=== PATIENT | male | born 1990 | race Caucasian/White ===

== ENCOUNTER 2017-07-11 12:37 | Emergency (ER) | payer OTHER ==
[2017-07-11] MEDS ORDERED: 0.9 % SODIUM CHLORIDE 1,000 ML BAG IV ONE ×2 (13:20→14:42)
[2017-07-11] MEDS ORDERED: ONDANSETRON HCL IV 4 MG/2 ML VIAL IV ONE (13:20)
--- NOTE | 2017-07-11 13:27 | Emergency Department Record ---
History of Present Illness - General Chief complaint: Vomiting Stated complaint: VOMITING FOR 12 HOURS Time Seen by Provider: 07/11/17 13:16 Source: Patient Mode of Arrival: Ambulatory Limitations: No limitations - History of Present Illness Initial comments: The patient is here due to a 12 hour hx of nausea, vomiting, and then diarrhea. He also has had L flank pain which is a sharp stabbing pain. Presently he is feeling better. He denies any fever, dysuria, arm or leg numbness, weakness or any bowel or bladder issues. The patient's only abdominal surgical hx is of a hernia repair as a child. MD complaint: Diarrhea, Nausea, Vomiting Onset/Timin -: Days(s) Description of Vomiting: Watery Associated Abdominal Pain: Yes Location: LUQ, LLQ Radiation: Back Severity scale (1-10): 8 Quality: Aching, Sharp Consistency: Constant Improves with: None Worsens with: Eating Associated Symptoms: Nausea/vomiting - Related Data Home Medications Medication Instructions Recorded Confirmed Last Taken Aripiprazole 10 mg PO DAILY 07/11/17 07/11/17 Unknown Celecoxib 300 mg PO BID 07/11/17 07/11/17 Unknown Cholecalciferol (Vitamin D3) 1,000 unit PO DAILY 07/11/17 07/11/17 Unknown [Vitamin D3] Cyanocobalamin (Vitamin B-12) 1,000 mcg PO DAILY 07/11/17 07/11/17 Unknown [Vitamin B-12] Cyclobenzaprine HCl 30 mg PO TID 07/11/17 07/11/17 Unknown Diazepam [Valium] 10 mg PO BID 07/11/17 07/11/17 Unknown Duloxetine HCl [Cymbalta] 90 mg PO DAILY 07/11/17 07/11/17 Unknown Gabapentin [Neurontin] 1,800 mg PO TID 07/11/17 07/11/17 Unknown Isosorbide Mononitrate [Imdur] 60 mg PO DAILY 07/11/17 07/11/17 Unknown Lactobacillus Acidophilus 200 mg PO DAILY 07/11/17 07/11/17 Unknown [Acidophilus] Magnesium 500 mg PO DAILY 07/11/17 07/11/17 Unknown Goodrich-3S/Dha/Epa/Fish Oil [Fish 1 each PO DAILY 07/11/17 07/11/17 Unknown Oil 1,200 mg Softgel] Pantoprazole Sodium 40 mg PO DAILY 07/11/17 07/11/17 Unknown Prazosin HCl 3 mg PO DAILY 07/11/17 07/11/17 Unknown Propranolol HCl 20 mg PO BID 07/11/17 07/11/17 Unknown Pyridoxine HCl (Vitamin B6) 100 mg PO DAILY 07/11/17 07/11/17 Unknown [Vitamin B-6] Quetiapine Fumarate [Seroquel] 200 mg PO DAILY 07/11/17 07/11/17 Unknown Riboflavin [Vitamin B-2] 100 mg PO DAILY 07/11/17 07/11/17 Unknown Sumatriptan Succinate 100 mg PO DAILY 07/11/17 07/11/17 Unknown Topiramate [Topamax] 100 mg PO BID 07/11/17 07/11/17 Unknown Vit C/Vit E AC/Lut/Copper/Zinc 1 tab PO BID 07/11/17 07/11/17 Unknown [PreserVision Lutein Softgel] Vitamin B Complex 1 each PO DAILY 07/11/17 07/11/17 Unknown Allergies Allergy/AdvReac Type Severity Reaction Status Date / Time codeine Allergy NAUSEA AND Verified 07/11/17 13:14 VOMITING Penicillins Allergy HIVES Verified 07/11/17 13:14 Travel Screening - Travel/Exposure Within Last 30 Days Have you traveled within the last 30 days?: No Review of Systems Constitutional: Denies: Chills, Fever Eyes: Denies: Eye discharge ENT: Denies: Congestion Respiratory: Denies: Cough, Dyspnea Cardiovascular: Denies: Chest pain Past Medical History - SOCIAL HISTORY Smoking Status: Current some day smoker Alcohol Use: None Drug Use: None - RESPIRATORY Hx Respiratory Disorders: No - CARDIOVASCULAR Hx Cardio Disorders: No - NEURO Hx Neuro Disorders: Yes Hx Headaches: Yes Comment:: TBI - GI Hx GI Disorders: No - Hx Genitourinary Disorders: No - ENDOCRINE Hx Endocrine Disorders: No - MUSCULOSKELETAL Hx Musculoskeletal Disorders: No - PSYCH Hx Psych Problems: Yes Hx Anxiety: Yes Hx Depression: Yes - HEMATOLOGY/ONCOLOGY Hx Hematology/Oncology Disorders: No Family Medical History Any Significant Family History?: No Physical Exam - General General Appearance: Alert, Oriented x3, Cooperative, No acute distress - Head Head exam: Atraumatic, Normocephalic, Normal inspection - Eye Eye exam: Normal appearance, PERRL - Neck Neck exam: Normal inspection, Full ROM. negative: Tenderness - Respiratory Respiratory exam: Normal lung sounds bilaterally. negative: Respiratory distress - Cardiovascular Cardiovascular Exam: Regular rate, Normal rhythm, Normal heart sounds - GI/Abdominal GI/Abdominal exam: Soft, Normal bowel sounds, Tenderness (There is mild L sided tenderness.) - Extremities Extremities exam: Normal inspection, Full ROM, Normal capillary refill. negative: Tenderness - Neurological Neurological exam: Alert. negative: Motor sensory deficit Course Vital Signs 07/11/17 13:02 Temperature 99.1 F Pulse Rate 107 H Respiratory 20 Rate Blood Pressure 119/85 Pulse Ox 99 - Reevaluation(s) Reevaluation #1: The patient is doing a lot better at this time. He denies any pain or discomfort or nausea. He is drinking water with no nausea or vomiting and has had no loose stools here. On exam his abdomen is very soft and nontender in all 4 quads. I did explain to him that the CT and UA are very normal and the patient feels ready for home. It appears he most likely had a viral GI bug and now is doing a lot better. He is to drink plenty of fluids and return to the ER for any worsening symptoms. 07/11/17 15:40 Medical Decision Making - Data Complexity MDM Data: Labs Ordered and/or Reviewed, X-Ray Ordered and/or Reviewed - Lab Data Result diagrams: 07/11/17 13:43 07/11/17 13:43 - Radiology Data Radiology results: Report reviewed (Abd/pelvis CT: Neg.) Disposition Disposition: Discharge Clinical Impression: Gastroenteritis Disposition: Home, Self-Care Condition: (2) Stable Instructions: Acute Nausea and Vomiting (ED) Additional Instructions: Please drink clear liquids for 6 hours then slowly advance your diet. Use your home Zofran for nausea. Please see your family doctor if not better in 3 days. Return to the ER for any return of the vomiting, diarrhea, or for any fever or abdominal pain. Forms: Patient Portal Access Time of Disposition: 15:43 Quality - Quality Measures Quality Measures: N/A - Blood Pressure Screening View Details: Yes Does Patient Have Any of the Following: No Blood Pressure Classification: Pre-Hypertensive BP Reading Systolic Measurement: 119 Diastolic Measurement: 85 Screening for High Blood Pressure: < Pre-Hypertensive BP, F/U Documented > [ G8950] Pre-Hypertensive Follow-up Interventions: Referral to alternative/primary care provider.
[2017-07-11 13:50] LABS: BASO % 0.1 % (0-6); EOS % 0.1 % (0-6); HEMATOCRIT 48.7 % (42.0-52.0); LYMPH % 1.2 % (16-45); MEAN CELL VOLUME 87.4 fl (81-97); MEAN CORPUSCULAR HEMOGLOBIN 30.5 pg (27-33); MEAN CORPUSCULAR HGB CONC 34.9 g/dl (32-36); MEAN PLATELET VOLUME 9.8 fl (7.4-10.4); MONO % 4.6 % (0-9); PLATELET COUNT 258 K/uL (130-400); RED BLOOD COUNT 5.57 M/uL (4.40-5.70); RED CELL DISTRIBUTION WIDTH 13.9 % (11.5-14.5); WHITE BLOOD COUNT W/O DIFF 17.2 K/uL (4.2-12.2)
[2017-07-11 13:59] LABS: BLOOD UREA NITROGEN 13 mg/dL (6-20); CREATININE 1.2 mg/dL (0.7-1.2); EST GLOMERULAR FILTRATION RATE > 60 mL/min
[2017-07-11 14:02] LABS: GLUCOSE,RANDOM 137 mg/dL (74-109)
[2017-07-11 14:05] LABS: ALKALINE PHOSPHATASE 71 U/L (40-129); ALT/SGPT 28 U/L (<41); AST/SGOT 19 U/L (10.0-50.0); LIPASE 12 U/L (13-60)
[2017-07-11 14:10] LABS: BILIRUBIN,DIRECT < 0.2 mg/dL (0-0.3)
[2017-07-11] MEDS ORDERED: KETOROLAC 30 MG/ML VIAL IVP ONE (14:23)
[2017-07-11 15:36] LABS: URINE APPEARANCE CLEAR; URINE BILIRUBIN NEGATIVE (NEGATIVE); URINE BLOOD NEGATIVE (NEGATIVE); URINE COLOR YELLOW; URINE GLUCOSE (UA) NEGATIVE (NEGATIVE); URINE KETONE NEGATIVE (NEGATIVE); URINE LEUKOCYTE ESTERASE NEGATIVE (NEGATIVE); URINE NITRITE NEGATIVE (NEGATIVE); URINE PROTEIN NEGATIVE (NEGATIVE); URINE UROBILINOGEN 0.2 E.U./dL (0.20 - 1.00)
--- NOTE | 2017-07-13 11:20 | CT SCAN REPORT ---
DATE: 07/13/2017. EXAM: CT SCAN OF THE ABDOMEN AND PELVIS WITHOUT CONTRAST. HISTORY: Left lower quadrant pain. TECHNIQUE: CT of the abdomen and pelvis was performed without or or intravenous contrast which limits evaluation of the bowel and solid visceral organs. COMPARISON: None. FINDINGS: Limited evaluation of the lung bases is unremarkable. Osseous structures are grossly intact. Probable fatty infiltrative change to the liver. The spleen, adrenal glands, pancreas, and kidneys are unremarkable. The gallbladder is present. Negative for urinary tract calculus or hydronephrosis. No gross evidence for bowel obstruction. Normal appendix. No free air or free fluid. IMPRESSION: FATTY INFILTRATIVE CHANGE TO THE LIVER. NEGATIVE FOR URINARY TRACT CALCULUS OR HYDRONEPHROSIS. JOB NUMBER: [id number] MTDD
== END 2017-07-11 15:58 | disposition home or self-care (01) ==
LOC: ER 12:37
DX: K52.9 Noninfective gastroenteritis and colitis, unspecified (principal); R11.2 Nausea with vomiting, unspecified; R10.12 Left upper quadrant pain; R10.11 Right upper quadrant pain; F17.210 Nicotine dependence, cigarettes, uncomplicated
CPT/HCPCS: 99284 ×2; 96374; 96375; 96361; 83690; 80076; 80048; 81003; 85027; 74176; J1885; J2405; J7030

== ENCOUNTER 2017-09-14 16:19 | Emergency (ER) | payer OTHER ==
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
[2017-09-14] MEDS ORDERED: ENOXAPARIN 100 MG/ML SYR SQ ONE (17:31)
--- NOTE | 2017-09-14 23:10 | RADIOLOGY REPORT ---
EXAM: LOWER LEG, LEFT HISTORY: LATERAL LEFT KNEE PAIN. ABRASION AND SWELLING FOLLOWING FALL FIVE DAYS PRIOR. TECHNIQUE: Left tibia/fibula, two views. FINDINGS: The bones, joints, and soft tissues are unremarkable. No fracture or malalignment. IMPRESSION: NO ACUTE OSSEOUS ABNORMALITY LEFT TIBIA/FIBULA. JOB NUMBER: [id number] MTDD
--- NOTE | 2017-09-14 23:12 | RADIOLOGY REPORT ---
EXAM: KNEE, LEFT 4 VIEWS HISTORY: LATERAL LEFT KNEE PAIN. FALL FIVE DAYS PRIOR. TECHNIQUE: Left knee, complete. FINDINGS: Moderate knee joint effusion. No fracture or malalignment. Joint spaces are preserved. Soft tissues unremarkable. IMPRESSION: KNEE JOINT EFFUSION WITHOUT CLEARLY ACUTE OSSEOUS ABNORMALITY. JOB NUMBER: [id number] MTDD
== END 2017-09-14 18:26 | disposition short-term general hospital (02) ==
LOC: ER 16:19
DX: M25.562 Pain in left knee (principal); M54.5 Low back pain; M79.662 Pain in left lower leg; M25.462 Effusion, left knee; F17.210 Nicotine dependence, cigarettes, uncomplicated; Z91.81 History of falling
CPT/HCPCS: 96372; 99284; J1650

== ENCOUNTER 2018-07-14 11:00 | Emergency (ER) | payer OTHER ==
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
[2018-07-14] MEDS ORDERED: 0.9 % SODIUM CHLORIDE 1,000 ML BAG IV ONE (11:24)
[2018-07-14 11:37] LABS: BASO % 0.2 % (0-6); EOS % 2.6 % (0-6); GRAN % 55.5 % (47-80); HEMATOCRIT 43.4 % (42.0-52.0); HEMOGLOBIN 14.5 gm/dl (14.0-18.0); LYMPH % 32.8 % (16-45); MEAN CELL VOLUME 88.6 fl (81-97); MEAN CORPUSCULAR HEMOGLOBIN 29.6 pg (27-33); MEAN CORPUSCULAR HGB CONC 33.4 g/dl (32-36); MONO % 8.9 % (0-9); PLATELET COUNT 222 K/uL (130-400); RED CELL DISTRIBUTION WIDTH 14.8 % (11.5-14.5); WHITE BLOOD COUNT W/O DIFF 5.3 K/uL (4.2-12.2)
[2018-07-14 11:52] LABS: BLOOD UREA NITROGEN 14 mg/dL (6-20); CREATININE 1.2 mg/dL (0.7-1.2); EST GLOMERULAR FILTRATION RATE > 60 mL/min
[2018-07-14 11:53] LABS: TOTAL PROTEIN 7.2 g/dL (6.6-8.7)
[2018-07-14 11:55] LABS: GLUCOSE,RANDOM 99 mg/dL (74-109)
[2018-07-14 11:58] LABS: ALB/GLOB RATIO 1.5 (1.1-1.8); ALBUMIN 4.3 g/dL (4.0-5.0); ALKALINE PHOSPHATASE 64 U/L (40-129); ALT/SGPT 28 U/L (<41); AST/SGOT 38 U/L (10.0-50.0)
[2018-07-14 12:09] LABS: THYROID STIMULATING HORMONE 1.81 uIU/mL (0.270-4.20)
[2018-07-14] MEDS ORDERED: 0.9 % SODIUM CHLORIDE 1000ML 1,000 ML IV ONE (13:02)
[2018-07-14 13:51] LABS: URINE APPEARANCE CLEAR; URINE BILIRUBIN NEGATIVE (NEGATIVE); URINE BLOOD NEGATIVE (NEGATIVE); URINE COLOR YELLOW; URINE GLUCOSE (UA) NEGATIVE (NEGATIVE); URINE KETONE NEGATIVE (NEGATIVE); URINE LEUKOCYTE ESTERASE NEGATIVE (NEGATIVE); URINE NITRITE NEGATIVE (NEGATIVE); URINE PROTEIN NEGATIVE (NEGATIVE); URINE UROBILINOGEN 0.2 E.U./dL (0.20 - 1.00)
[2018-07-14 13:57] LABS: AMPHETAMINE SCREEN URINE NOT DETECTED; BARBITURATE SCREEN URINE NOT DETECTED; BENZODIAZEPINE SCREEN URINE NOT DETECTED; COCAINE SCREEN URINE NOT DETECTED; METHADONE SCREEN URINE NOT DETECTED; METHAMPHETAMINE SCREEN NOT DETECTED; OPIATE SCREEN URINE NOT DETECTED; OXYCODONE SCREEN URINE NOT DETECTED; PHENCYCLIDINE SCREEN URINE NOT DETECTED; PROPOXYPHENE SCREEN URINE NOT DETECTED; THC SCREEN URINE NOT DETECTED; TRICYCLIC ANTIDEPRESSANT SCRN DETECTED
== END 2018-07-14 14:30 | disposition home or self-care (01) ==
LOC: ER 11:00
DX: T50.995A Adverse effect of other drugs, medicaments and biological substances, initial encounter (principal); R51 Headache; F17.210 Nicotine dependence, cigarettes, uncomplicated; Z87.820 Personal history of traumatic brain injury
CPT/HCPCS: 70450; 80053; 80305; 81003; 83735; 84443; 85025; 96360; 96361; 99284; J7030

== ENCOUNTER 2018-07-17 10:45 | Emergency (ER) | payer OTHER ==
--- NOTE | 2018-07-17 10:58 | Emergency Department Record ---
History of Present Illness - General Stated Complaint: HEADACHE Time Seen by Provider: 07/17/18 10:47 Source: Patient Mode of Arrival: Ambulatory Limitations: No limitations - History of Present Illness Initial Comments: 28 yo male presents with persistent headache, vision changes, shakiness, tremor for over 7 days. He has seen his PCP twice, the ED in [place], and his eye doctor. With the tremor, anxiousness, headache there was a concern about seritonin syndrome symptoms. His medications that could cause the symptoms were stopped. There was not improvement in the symptoms. Labs and HCT were negative in the ED as were his vital signs. He has a history of migraines and traumatic brain injury in the past. He has notice a new tender quarter size area in his posterior scalp for 3 days. No spreading of the rash. That area is actually decreasing in size. His tremor is improving but not gone. PCP is at the [place] [facility] Complaint: Headache -: Week(s) Onset Description: Gradual Location: Diffuse Severity: Moderate Quality: Aching Consistency: Constant Improves With: Immobilization Worsens With: Exertion/activity Context: Other Associated Symptoms: Nausea, Neck stiffness, Weakness Other Symptoms: Other Treatments Prior to Arrival: None - Related Data Allergies Allergy/AdvReac Type Severity Reaction Status Date / Time codeine Allergy NAUSEA AND Verified 07/14/18 11:10 VOMITING Penicillins Allergy HIVES Verified 07/14/18 11:10 Review of Systems Constitutional: Reports: Malaise, Weakness. Denies: Chills, Fever Eyes: Reports: Vision change. Denies: Eye discharge, Eye pain, Photophobia ENT: Denies: Congestion, Throat pain Respiratory: Denies: Cough, Dyspnea, Hemoptysis, Stridor, Wheezes Cardiovascular: Denies: Chest pain, Palpitations, Syncope Endocrine: Reports: Fatigue. Denies: Polydipsia, Polyuria Gastrointestinal: Reports: Nausea. Denies: Abdominal pain, Constipation, Diarrhea, Vomiting Genitourinary: Denies: Dysuria, Frequency Musculoskeletal: Denies: Arthralgia, Back pain, Myalgia Skin: Denies: Bruising, Change in color, Rash Neurological: Reports: Headache, Vertigo, Weakness. 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 negative: Normal inspection Image of Face/Head: 1 - slightly raised erythema appears to have follicular pustules, no satellite lesions to suggest shingles - Eye Eye exam: Normal appearance, EOMI. negative: Conjunctival injection, Nystagmus , Periorbital swelling, Scleral icterus Pupils: Mydriatic - ENT ENT exam: Normal exam, Mucous membranes moist Ear exam: Normal external inspection Nasal Exam: Normal inspection Mouth exam: Normal external inspection - Neck Neck exam: Normal inspection, Full ROM. negative: Meningismus, Tenderness - Respiratory Respiratory exam: Normal lung sounds bilaterally. negative: Respiratory distress - Cardiovascular Cardiovascular Exam: Regular rate, Normal rhythm, Normal heart sounds - GI/Abdominal GI/Abdominal exam: Soft. negative: Tenderness - Rectal Rectal exam: Deferred - exam: Deferred - Extremities Extremities exam: Normal inspection - Back Back exam: Denies: CVA tenderness (R), CVA tenderness (L) - Neurological Neurological exam: Alert, Oriented X3 - Psychiatric Psychiatric exam: Normal affect, Normal mood - Skin Skin exam: Dry, Intact, Normal color, Warm Course - Reevaluation(s) Reevaluation #1: EMR reviewed from the prior visit HCT was normal Labs normal UDS only positive for tricyclics but on Flexeril 07/17/18 11:05 07/17/18 11:07 Vitals reviewed. No acute abnormalities 07/17/18 12:05 The labs results were reviewed There are no acute significant abnormalities of the CBC There are no acute significant abnormalities of the CMP The C-RP is normal 07/17/18 12:49 At this point he has seen his PCP twice and the ED twice. I believe he requires further work up as an impatient given his symptoms, complex medication list and failed outpatient attempts to improve I called [facility] Beard accepts the patient for transfer Medical Decision Making - Lab Data Result diagrams: 07/17/18 11:30 07/17/18 11:30 Disposition Disposition: Transfer Clinical Impression: Headache, Vision changes, Intractable headache, Tremor Disposition: Acute Care Hospital Transfer Transfer To: [facility] Reason For Transfer: Intractable PINEDA, Possible Seritonin Syndrome Accepting Physician: Kisha Time Discussed w/Accepting Physician: 12:08 Condition: (2) Stable Time of Disposition: 12:08 Quality - Quality Measures Quality Measures: N/A - Blood Pressure Screening Does Patient Have Any of the Following: No Blood Pressure Classification: Pre-Hypertensive BP Reading Systolic Measurement: 129 Diastolic Measurement: 81 Screening for High Blood Pressure: < Pre-Hypertensive BP, F/U Documented > [ [id number]] Pre-Hypertensive Follow-up Interventions: Referral to alternative/primary care provider.
[2018-07-17] MEDS ORDERED: KETOROLAC 30 MG/ML VIAL IVP ONE (11:27)
[2018-07-17] MEDS ORDERED: MORPHINE SULFATE 10 MG/ML VIAL IVP ONE (11:27)
[2018-07-17 11:37] LABS: BASO % 0.2 % (0-6); EOS % 3.4 % (0-6); GRAN % 57.5 % (47-80); HEMATOCRIT 44.3 % (42.0-52.0); HEMOGLOBIN 14.7 gm/dl (14.0-18.0); LYMPH % 30.8 % (16-45); MEAN CELL VOLUME 89.1 fl (81-97); MEAN CORPUSCULAR HEMOGLOBIN 29.6 pg (27-33); MEAN CORPUSCULAR HGB CONC 33.2 g/dl (32-36); MEAN PLATELET VOLUME 9.8 fl (7.4-10.4); MONO % 8.1 % (0-9); PLATELET COUNT 228 K/uL (130-400); RED BLOOD COUNT 4.97 M/uL (4.40-5.70); RED CELL DISTRIBUTION WIDTH 14.7 % (11.5-14.5); WHITE BLOOD COUNT W/O DIFF 4.4 K/uL (4.2-12.2)
[2018-07-17 11:46] LABS: BLOOD UREA NITROGEN 13 mg/dL (6-20); CREATININE 1.3 mg/dL (0.7-1.2); EST GLOMERULAR FILTRATION RATE > 60 mL/min
[2018-07-17 11:47] LABS: TOTAL PROTEIN 7.3 g/dL (6.6-8.7)
[2018-07-17 11:48] LABS: PARTIAL THROMBOPLASTIN TIME 27.3 SECONDS (24.5-39.1); PROTHROMBIN TIME (PATIENT) 9.7 SECONDS (9.5-12.1)
[2018-07-17 11:49] LABS: GLUCOSE,RANDOM 106 mg/dL (74-109)
[2018-07-17 11:51] LABS: ALB/GLOB RATIO 1.6 (1.1-1.8); ALBUMIN 4.5 g/dL (4.0-5.0); ALKALINE PHOSPHATASE 72 U/L (40-129); ALT/SGPT 23 U/L (<41); AST/SGOT 20 U/L (10.0-50.0)
[2018-07-17 11:52] LABS: C-REACTIVE PROTEIN 0.26 mg/dL (<0.5)
[2018-07-17 12:23] LABS: ERYTHROCYTE SEDIMENTATION RATE 19 mm/hr (0-15)
[2018-07-17 12:56] LABS: URINE APPEARANCE CLEAR; URINE BILIRUBIN NEGATIVE (NEGATIVE); URINE BLOOD NEGATIVE (NEGATIVE); URINE COLOR YELLOW; URINE GLUCOSE (UA) NEGATIVE (NEGATIVE); URINE KETONE NEGATIVE (NEGATIVE); URINE LEUKOCYTE ESTERASE NEGATIVE (NEGATIVE); URINE NITRITE NEGATIVE (NEGATIVE); URINE PROTEIN NEGATIVE (NEGATIVE); URINE UROBILINOGEN 0.2 E.U./dL (0.20 - 1.00)
[2018-07-17 12:59] LABS: AMPHETAMINE SCREEN URINE NOT DETECTED; BARBITURATE SCREEN URINE NOT DETECTED; BENZODIAZEPINE SCREEN URINE NOT DETECTED; COCAINE SCREEN URINE NOT DETECTED; METHADONE SCREEN URINE NOT DETECTED; METHAMPHETAMINE SCREEN NOT DETECTED; OPIATE SCREEN URINE DETECTED; OXYCODONE SCREEN URINE NOT DETECTED; PHENCYCLIDINE SCREEN URINE NOT DETECTED; PROPOXYPHENE SCREEN URINE NOT DETECTED; THC SCREEN URINE NOT DETECTED; TRICYCLIC ANTIDEPRESSANT SCRN DETECTED
== END 2018-07-17 14:50 | disposition short-term general hospital (02) ==
LOC: ER 10:45
DX: G43.911 Migraine, unspecified, intractable, with status migrainosus (principal); H53.9 Unspecified visual disturbance; R25.1 Tremor, unspecified; R11.0 Nausea; R53.1 Weakness; F17.210 Nicotine dependence, cigarettes, uncomplicated
CPT/HCPCS: 99285 ×2; 96374; 96375; 85025; 85651; 85730; 85610; 86140; 80053; 81003; 80305; J1885; J2270